=== PATIENT | female | born 1930 | race Caucasian/White ===

== ENCOUNTER → 2016-10-26 | Outpatient (REF) | payer MEDICARE ==
[~2016-10-26] MED LIST: ADVA115A INH; CALC600T10 PO; CART120C PO; COLA100C PO; DULC5TAB PO; ELIQ2.5T PO; HYDR12CA PO; NORCOTAB PO; SIMV20TA2 PO; SPIR1CAP INH; VITA-130 PO; VITA10002 PO; VITA100066 PO; [UNRECOGNIZED DRUG - CODE] PO
== END ==
LOC: M LAB REF 16:34
PROVIDERS: ATTEND Internal Medicine Medical Oncology
DX: C18.9 Malignant neoplasm of colon, unspecified (principal)

== ENCOUNTER → 2017-01-26 | Outpatient (REF) | payer MEDICARE ==
[~2017-01-26] MED LIST changes: -COLA100C PO; +COLA100C3 PO
== END ==
LOC: M LAB REF 16:36
PROVIDERS: ATTEND Internal Medicine Medical Oncology
DX: C18.9 Malignant neoplasm of colon, unspecified (principal)

== ENCOUNTER → 2017-03-23 | Outpatient (CLI) | payer MEDICARE ==
[~2017-03-23] MED LIST changes: -CALC600T10 PO; +CALC600T31 PO; -COLA100C3 PO; +COLA100C5 PO; +FURO20TA2 PO; +K-TA10TA2 PO; +VENTAER IN; -VITA-130 PO; +VITA500T PO
--- NOTE | 2017-03-23 13:33 | REPMRS ---
Patient History The patient states she had a clinical breast exam in 02/14 Patient is postmenopausal, has history of colorectal cancer at age 85, and has history of skin cancer at age 49 and 86. Family history of breast cancer in sister at age 50 or over. Digital Woman Screen Mammo: March 23, 2017 - Exam #: [id number] Bilateral CC and MLO view(s) were taken. Technologist: Lindsey Reed, Technologist Prior study comparison: March 03, 2016, digital woman screen mammo performed at [facility] [employer] [facility]. March 04, 2015, digital woman screen mammo performed at [facility] [employer] [facility]. FINDINGS: There are scattered fibroglandular densities. There has been no change in the appearance of the mammogram from the prior studies. There is a mild amount of residual fibroglandular tissue which is fairly symmetric. There is no interval development of dominant mass, architectural distortion, or clustered microcalcification suggestive of malignancy. ASSESSMENT: BI-RADS/ACR category 1 mammogram. Negative. Recommendation Routine screening mammogram in 1 year (for women over age 40). This mammogram was interpreted with the aid of an FDA-approved computer-aided dectection system. Electronically Signed By: Tommy Rosales MD 03/23/17 [id number]
== END ==
LOC: M WHC 12:58
PROVIDERS: ATTEND Internal Medicine
DX: Z12.31 Encounter for screening mammogram for malignant neoplasm of breast (principal)

== ENCOUNTER → 2017-04-29 | Outpatient (REF) | payer MEDICARE | LOC: M LAB REF 12:38 | PROVIDERS: ATTEND Internal Medicine Medical Oncology | DX: C18.9 Malignant neoplasm of colon, unspecified (principal) ==

== ENCOUNTER 2017-05-02 20:19 | Emergency (ER) | payer MEDICARE ==
[~2017-05-02] VITALS: Ht 162.6 cm; Wt 77.3 kg
[~2017-05-02 20:19] MED LIST changes: -FURO20TA2 PO; -K-TA10TA2 PO; -VENTAER IN
[2017-05-02] MEDS ORDERED: K-TA10TA2 PO (20:44)
[2017-05-02] MEDS ORDERED: FURO20TA2 PO (20:46)
[2017-05-03 00:48] VITALS: BP 140/62
[2017-05-24] MEDS ORDERED: ELIQ2.5T PO (14:13)
[2017-05-24] MEDS ORDERED: VENTAER IN (14:16)
== END 2017-05-03 00:49 | disposition home or self-care (01) ==
LOC: M ED 20:19
DX: S81.812A Laceration without foreign body, left lower leg, initial encounter (principal); Z87.891 Personal history of nicotine dependence; Z79.01 Long term (current) use of anticoagulants; W22.09XA Striking against other stationary object, initial encounter; Y92.090 Kitchen in other non-institutional residence as the place of occurrence of the external cause; Y93.01 Activity, walking, marching and hiking; Y99.9 Unspecified external cause status

== ENCOUNTER → 2017-05-05 | Outpatient (REF) | payer MEDICARE ==
[~2017-05-05] MED LIST changes: +FURO20TA2 PO; +K-TA10TA2 PO; +VENTAER IN
== END ==
LOC: M LAB REF 12:12
PROVIDERS: ATTEND Nurse Practitioner Adult Health
DX: E83.52 Hypercalcemia (principal)

== ENCOUNTER → 2017-08-30 | Outpatient (REF) | payer MEDICARE ==
[2017-08-30 18:55] LABS: CARCINOEMBRYONIC ANTIGEN 1.4 NG/ML (<2.5)
== END ==
LOC: M LAB REF 17:42
DX: C18.9 Malignant neoplasm of colon, unspecified (principal)
CPT/HCPCS: 82378

== ENCOUNTER 2017-08-31 10:02 | Inpatient (IN) | payer MEDICARE ==
[2017-08-31 10:33] LABS: BASO # 0.1 10^3/uL (0.0-0.2); BASO % 0.4 % (0.0-1.0); EOS # 0.2 10^3/uL (0.0-0.50); EOS % 1.2 % (0.0-3.0); HEMATOCRIT 39.3 % (36.0-47.0); HEMOGLOBIN 12.3 g/dl (12.0-16.0); IMMATURE GRANULOCYTE # 0.1 10^3/uL (0-0); IMMATURE GRANULOCYTE % 0.6 % (0-0); LYMPH # 1.6 10^3/uL (1.5-4.5); LYMPH % 11.6 % (24.0-44.0); MEAN CORPUSCULAR HEMOGLOBIN 29.5 pg (27.0-33.0); MEAN CORPUSCULAR HGB CONC 31.3 g/dl (32.0-36.5); MEAN CORPUSCULAR VOLUME 94.2 fl (80.0-96.0); MONO # 1.1 10^3/uL (0.0-0.8); NEUTROPHILS # 10.9 10^3/uL (1.8-7.7); NEUTROPHILS % 78.2 % (36.0-66.0); PLATELET COUNT, AUTOMATED 248 10^3/uL (150-450); RED BLOOD COUNT 4.17 10^6/uL (4.00-5.40); RED CELL DISTRIBUTION WIDTH 13.5 % (11.5-14.5)
[2017-08-31 10:54] LABS: LACTIC ACID SEPSIS PROTOCOL 1.5 MMOL/L (0.4-2.0)
[2017-08-31 10:55] LABS: ALBUMIN 3.4 GM/DL (3.2-5.2); ALBUMIN/GLOBULIN RATIO 0.97 (1.00-1.93); ALKALINE PHOSPHATASE 55 U/L (45-117); ALT/SGPT 18 U/L (12-78); ANION GAP 5 MEQ/L (8-16); AST/SGOT 16 U/L (7-37); BILIRUBIN,DIRECT < 0.1 MG/DL (0.0-0.2); BILIRUBIN,TOTAL 0.3 MG/DL (0.2-1.0); BLOOD UREA NITROGEN 12 MG/DL (7-18); CALCIUM LEVEL 8.7 MG/DL (8.8-10.2); CARBON DIOXIDE LEVEL 32 MEQ/L (21-32); CHLORIDE LEVEL 108 MEQ/L (98-107); CREATININE FOR GFR 0.83 MG/DL (0.55-1.30); GLOMERULAR FILTRATION RATE > 60.0 (>32); GLUCOSE, FASTING 133 MG/DL (70-100); NT-PRO BNP 79 PG/ML (<450); POTASSIUM SERUM 3.3 MEQ/L (3.5-5.1); SODIUM LEVEL 145 MEQ/L (136-145); TOTAL PROTEIN 6.9 GM/DL (6.4-8.2)
[2017-08-31] MEDS ORDERED: ISOVUE-370 76% 100ML VIAL (Q9967) As Ordered (11:15)
[2017-08-31] MEDS ORDERED: ALBUTEROL SULFATE 2.5 MG/0.5 ML INH NEB SOLN INH ×2 (14:30→16:00)
[2017-08-31] MEDS ORDERED: ACETAMINOPHEN TAB 650MG DOSE (2X325MG) PO (14:30)
[2017-08-31] MEDS: LEVALBUTEROL 1.25 MG/0.5 ML CONCENTRATE NEB NEB (14:38)
[2017-08-31] MEDS: methylPREDNISolone INJ 125 MG/2 ML VIAL (J2930) IV ×2 (14:40→23:36)
[2017-08-31 15:59] LABS: MAGNESIUM LEVEL 2.3 MG/DL (1.8-2.4)
[2017-08-31] MEDS: POTASSIUM CHLORIDE 10 MEQ SR TABLET PO ×2 (17:59→21:29)
[2017-08-31 18:37] LABS: ANION GAP 4 MEQ/L (8-16); BLOOD UREA NITROGEN 10 MG/DL (7-18); CALCIUM LEVEL 9.2 MG/DL (8.8-10.2); CARBON DIOXIDE LEVEL 34 MEQ/L (21-32); CHLORIDE LEVEL 108 MEQ/L (98-107); CPK CREATINE PHOSPHOKINASE 113 U/L (26-192); CREATININE FOR GFR 0.83 MG/DL (0.55-1.30); GLOMERULAR FILTRATION RATE > 60.0 (>32); GLUCOSE, FASTING 159 MG/DL (70-100); MB/CK RELATIVE INDEX 1.76 (< OR =4); POTASSIUM SERUM 4.6 MEQ/L (3.5-5.1); SODIUM LEVEL 146 MEQ/L (136-145); TROPONIN I < 0.02 NG/ML (< 0.10)
[2017-08-31] MEDS: LEVALBUTEROL 1.25 MG/0.5 ML CONCENTRATE NEB INH (19:28)
[2017-08-31] MEDS: APIXABAN 2.5 MG TAB (ELIQUIS) PO (21:28)
[2017-08-31] MEDS: FUROSEMIDE 20 MG TAB PO (21:29)
[2017-08-31] MEDS: SIMVASTATIN 20 MG TAB PO (21:31)
[2017-08-31] MEDS: ADVAIR HFA 230/21MCG INHALER INH (21:39)
[2017-09-01 02:29] LABS: CK-MB VALUE MASS 1.3 NG/ML (0.0-3.6); CPK CREATINE PHOSPHOKINASE 82 U/L (26-192); MB/CK RELATIVE INDEX 1.58 (< OR =4); TROPONIN I < 0.02 NG/ML (< 0.10)
[2017-09-01 05:30] LABS: BASO % 0.1 % (0.0-1.0); HEMATOCRIT 35.6 % (36.0-47.0); HEMOGLOBIN 11.4 g/dl (12.0-16.0); IMMATURE GRANULOCYTE # 0.1 10^3/uL (0-0); IMMATURE GRANULOCYTE % 1.1 % (0-0); LYMPH # 1.2 10^3/uL (1.5-4.5); LYMPH % 9.5 % (24.0-44.0); MEAN CORPUSCULAR HEMOGLOBIN 29.9 pg (27.0-33.0); MEAN CORPUSCULAR VOLUME 93.4 fl (80.0-96.0); MONO # 0.1 10^3/uL (0.0-0.8); MONO % 1.1 % (0.0-5.0); NEUTROPHILS # 10.8 10^3/uL (1.8-7.7); NEUTROPHILS % 88.2 % (36.0-66.0); PLATELET COUNT, AUTOMATED 236 10^3/uL (150-450); RED BLOOD COUNT 3.81 10^6/uL (4.00-5.40); RED CELL DISTRIBUTION WIDTH 13.5 % (11.5-14.5); WHITE BLOOD COUNT 12.3 10^3/uL (4.0-10.0)
[2017-09-01 05:49] LABS: ALBUMIN 3.1 GM/DL (3.2-5.2); ALBUMIN/GLOBULIN RATIO 0.94 (1.00-1.93); ALKALINE PHOSPHATASE 47 U/L (45-117); ALT/SGPT 17 U/L (12-78); ANION GAP 5 MEQ/L (8-16); AST/SGOT 15 U/L (7-37); BILIRUBIN,TOTAL 0.3 MG/DL (0.2-1.0); BLOOD UREA NITROGEN 12 MG/DL (7-18); CALCIUM LEVEL 8.4 MG/DL (8.8-10.2); CARBON DIOXIDE LEVEL 31 MEQ/L (21-32); CHLORIDE LEVEL 108 MEQ/L (98-107); CREATININE FOR GFR 0.73 MG/DL (0.55-1.30); GLOMERULAR FILTRATION RATE > 60.0 (>32); GLUCOSE, FASTING 180 MG/DL (70-100); MAGNESIUM LEVEL 2.1 MG/DL (1.8-2.4); POTASSIUM SERUM 4.1 MEQ/L (3.5-5.1); SODIUM LEVEL 144 MEQ/L (136-145); TOTAL PROTEIN 6.4 GM/DL (6.4-8.2)
[2017-09-01] MEDS: methylPREDNISolone INJ 125 MG/2 ML VIAL (J2930) IV (06:25)
[2017-09-01] MEDS: APIXABAN 2.5 MG TAB (ELIQUIS) PO ×2 (08:21→21:17)
[2017-09-01] MEDS: POTASSIUM CHLORIDE 10 MEQ SR TABLET PO ×2 (08:21→21:19)
[2017-09-01] MEDS: VITAMIN D 1,000 INTERNATIONAL UNITS TABLET PO (08:21)
[2017-09-01] MEDS: FUROSEMIDE 20 MG TAB PO ×2 (08:22→21:18)
[2017-09-01] MEDS: ADVAIR HFA 230/21MCG INHALER INH ×2 (08:24→20:46)
[2017-09-01] MEDS: TIOTROPIUM INHALER/CAPSULE (SPIRIVA) INH (08:24)
[2017-09-01] MEDS: LEVALBUTEROL 1.25 MG/0.5 ML CONCENTRATE NEB INH ×5 (08:25→23:40)
[2017-09-01 10:58] LABS: CK-MB VALUE MASS 1.7 NG/ML (0.0-3.6); CPK CREATINE PHOSPHOKINASE 79 U/L (26-192); MB/CK RELATIVE INDEX 2.15 (< OR =4); TROPONIN I < 0.02 NG/ML (< 0.10)
[2017-09-01] MEDS: methylPREDNISolone INJ 40 MG/1 ML VIAL (J2920) IV ×2 (14:12→23:18)
[2017-09-01] MEDS: SIMVASTATIN 20 MG TAB PO (21:19)
[2017-09-02 05:46] LABS: BASO % 0.1 % (0.0-1.0); HEMATOCRIT 34.4 % (36.0-47.0); HEMOGLOBIN 10.9 g/dl (12.0-16.0); IMMATURE GRANULOCYTE # 0.5 10^3/uL (0-0); IMMATURE GRANULOCYTE % 2.1 % (0-0); LYMPH # 0.9 10^3/uL (1.5-4.5); LYMPH % 3.8 % (24.0-44.0); MEAN CORPUSCULAR HEMOGLOBIN 29.5 pg (27.0-33.0); MEAN CORPUSCULAR HGB CONC 31.7 g/dl (32.0-36.5); MEAN CORPUSCULAR VOLUME 93.2 fl (80.0-96.0); MONO # 0.7 10^3/uL (0.0-0.8); MONO % 3.1 % (0.0-5.0); NEUTROPHILS % 90.9 % (36.0-66.0); PLATELET COUNT, AUTOMATED 266 10^3/uL (150-450); RED BLOOD COUNT 3.69 10^6/uL (4.00-5.40); RED CELL DISTRIBUTION WIDTH 13.9 % (11.5-14.5); WHITE BLOOD COUNT 24.2 10^3/uL (4.0-10.0)
[2017-09-02] MEDS: methylPREDNISolone INJ 40 MG/1 ML VIAL (J2920) IV ×2 (06:08→14:49)
[2017-09-02 06:19] LABS: ALBUMIN 3.1 GM/DL (3.2-5.2); ALKALINE PHOSPHATASE 47 U/L (45-117); ALT/SGPT 18 U/L (12-78); ANION GAP 4 MEQ/L (8-16); AST/SGOT 16 U/L (7-37); BILIRUBIN,TOTAL 0.2 MG/DL (0.2-1.0); BLOOD UREA NITROGEN 22 MG/DL (7-18); CARBON DIOXIDE LEVEL 30 MEQ/L (21-32); CHLORIDE LEVEL 107 MEQ/L (98-107); CREATININE FOR GFR 0.88 MG/DL (0.55-1.30); FREE THYROXINE INDEX 2.8 % (1.3-4.8); GLOMERULAR FILTRATION RATE > 60.0 (>32); GLUCOSE, FASTING 187 MG/DL (70-100); POTASSIUM SERUM 5.1 MEQ/L (3.5-5.1); SODIUM LEVEL 141 MEQ/L (136-145); T UPTAKE 36 % (30-39); THYROID STIMULATING HORMONE 0.185 uIU/ML (0.358-3.740); THYROXINE (T4) 7.8 UG/DL (4.5-12.0); TOTAL PROTEIN 6.2 GM/DL (6.4-8.2)
[2017-09-02] MEDS: LEVALBUTEROL 1.25 MG/0.5 ML CONCENTRATE NEB INH ×4 (08:00→20:00)
[2017-09-02] MEDS: ADVAIR HFA 230/21MCG INHALER INH ×2 (08:28→20:43)
[2017-09-02] MEDS: TIOTROPIUM INHALER/CAPSULE (SPIRIVA) INH (08:28)
[2017-09-02] MEDS: VITAMIN D 1,000 INTERNATIONAL UNITS TABLET PO (08:54)
[2017-09-02] MEDS: ENOXAPARIN 80 MG/0.8 ML SYRINGE (J1650) SC ×2 (08:54→20:53)
[2017-09-02] MEDS ORDERED: SLF 3 ML SYR IV (11:00)
[2017-09-02] MEDS: SLF 3 ML SYR IV ×2 (14:49→20:53)
[2017-09-02] MEDS: SIMVASTATIN 20 MG TAB PO (20:53)
[2017-09-03] MEDS: methylPREDNISolone INJ 40 MG/1 ML VIAL (J2920) IV ×3 (00:02→20:04)
[2017-09-03] MEDS: SLF 3 ML SYR IV ×3 (00:04→21:12)
[2017-09-03 04:36] LABS: BASO % 0.1 % (0.0-1.0); HEMATOCRIT 35.6 % (36.0-47.0); HEMOGLOBIN 11.1 g/dl (12.0-16.0); IMMATURE GRANULOCYTE # 0.5 10^3/uL (0-0); IMMATURE GRANULOCYTE % 2.3 % (0-0); LYMPH # 0.7 10^3/uL (1.5-4.5); LYMPH % 3.4 % (24.0-44.0); MEAN CORPUSCULAR HEMOGLOBIN 29.6 pg (27.0-33.0); MEAN CORPUSCULAR HGB CONC 31.2 g/dl (32.0-36.5); MEAN CORPUSCULAR VOLUME 94.9 fl (80.0-96.0); MONO # 0.7 10^3/uL (0.0-0.8); MONO % 3.3 % (0.0-5.0); NEUTROPHILS # 19.2 10^3/uL (1.8-7.7); NEUTROPHILS % 90.9 % (36.0-66.0); PLATELET COUNT, AUTOMATED 258 10^3/uL (150-450); RED BLOOD COUNT 3.75 10^6/uL (4.00-5.40); RED CELL DISTRIBUTION WIDTH 13.9 % (11.5-14.5); WHITE BLOOD COUNT 21.2 10^3/uL (4.0-10.0)
[2017-09-03 04:55] LABS: ALBUMIN 3.1 GM/DL (3.2-5.2); ALBUMIN/GLOBULIN RATIO 0.97 (1.00-1.93); ALKALINE PHOSPHATASE 49 U/L (45-117); ALT/SGPT 24 U/L (12-78); ANION GAP 6 MEQ/L (8-16); AST/SGOT 15 U/L (7-37); BILIRUBIN,TOTAL 0.2 MG/DL (0.2-1.0); BLOOD UREA NITROGEN 22 MG/DL (7-18); CALCIUM LEVEL 9.1 MG/DL (8.8-10.2); CARBON DIOXIDE LEVEL 31 MEQ/L (21-32); CHLORIDE LEVEL 105 MEQ/L (98-107); CREATININE FOR GFR 0.69 MG/DL (0.55-1.30); GLOMERULAR FILTRATION RATE > 60.0 (>32); GLUCOSE, FASTING 182 MG/DL (70-100); POTASSIUM SERUM 4.4 MEQ/L (3.5-5.1); SODIUM LEVEL 142 MEQ/L (136-145); TOTAL PROTEIN 6.3 GM/DL (6.4-8.2)
[2017-09-03] MEDS: TIOTROPIUM INHALER/CAPSULE (SPIRIVA) INH (07:52)
[2017-09-03] MEDS: ADVAIR HFA 230/21MCG INHALER INH ×2 (07:53→23:40)
[2017-09-03] MEDS: LEVALBUTEROL 1.25 MG/0.5 ML CONCENTRATE NEB INH ×4 (07:53→20:00)
[2017-09-03] MEDS: ENOXAPARIN 80 MG/0.8 ML SYRINGE (J1650) SC ×2 (08:08→21:12)
[2017-09-03] MEDS: VITAMIN D 1,000 INTERNATIONAL UNITS TABLET PO (08:08)
[2017-09-03] MEDS: SIMVASTATIN 20 MG TAB PO (21:11)
[2017-09-03] MEDS: FUROSEMIDE 20 MG TAB PO (21:12)
[2017-09-04] MEDS: LEVALBUTEROL 1.25 MG/0.5 ML CONCENTRATE NEB INH ×5 (02:06→20:00)
[2017-09-04] MEDS: methylPREDNISolone INJ 40 MG/1 ML VIAL (J2920) IV (06:42)
[2017-09-04] MEDS: SLF 3 ML SYR IV ×3 (06:42→20:27)
[2017-09-04 07:05] LABS: BASO # 0.1 10^3/uL (0.0-0.2); BASO % 0.5 % (0.0-1.0); HEMATOCRIT 40.6 % (36.0-47.0); IMMATURE GRANULOCYTE % 4.7 % (0-0); LYMPH # 1.1 10^3/uL (1.5-4.5); LYMPH % 5.4 % (24.0-44.0); MEAN CORPUSCULAR HEMOGLOBIN 29.7 pg (27.0-33.0); MEAN CORPUSCULAR VOLUME 92.9 fl (80.0-96.0); MONO # 0.8 10^3/uL (0.0-0.8); MONO % 3.8 % (0.0-5.0); NEUTROPHILS # 17.4 10^3/uL (1.8-7.7); NEUTROPHILS % 85.6 % (36.0-66.0); PLATELET COUNT, AUTOMATED 290 10^3/uL (150-450); RED BLOOD COUNT 4.37 10^6/uL (4.00-5.40); RED CELL DISTRIBUTION WIDTH 13.8 % (11.5-14.5); WHITE BLOOD COUNT 20.3 10^3/uL (4.0-10.0)
[2017-09-04 07:30] LABS: ALBUMIN 3.5 GM/DL (3.2-5.2); ALBUMIN/GLOBULIN RATIO 1.03 (1.00-1.93); ALKALINE PHOSPHATASE 48 U/L (45-117); ALT/SGPT 25 U/L (12-78); ANION GAP 6 MEQ/L (8-16); AST/SGOT 11 U/L (7-37); BILIRUBIN,TOTAL 0.3 MG/DL (0.2-1.0); BLOOD UREA NITROGEN 19 MG/DL (7-18); CALCIUM LEVEL 8.9 MG/DL (8.8-10.2); CARBON DIOXIDE LEVEL 31 MEQ/L (21-32); CHLORIDE LEVEL 107 MEQ/L (98-107); CREATININE FOR GFR 0.85 MG/DL (0.55-1.30); GLOMERULAR FILTRATION RATE > 60.0 (>32); GLUCOSE, FASTING 174 MG/DL (70-100); POTASSIUM SERUM 3.8 MEQ/L (3.5-5.1); SODIUM LEVEL 144 MEQ/L (136-145); TOTAL PROTEIN 6.9 GM/DL (6.4-8.2)
[2017-09-04] MEDS: ADVAIR HFA 230/21MCG INHALER INH ×2 (07:48→20:10)
[2017-09-04] MEDS: TIOTROPIUM INHALER/CAPSULE (SPIRIVA) INH (07:48)
[2017-09-04] MEDS: ENOXAPARIN 80 MG/0.8 ML SYRINGE (J1650) SC ×2 (08:36→20:26)
[2017-09-04] MEDS: FUROSEMIDE 20 MG TAB PO ×2 (08:36→20:26)
[2017-09-04] MEDS: VITAMIN D 1,000 INTERNATIONAL UNITS TABLET PO (08:36)
[2017-09-04] MEDS: predniSONE 20 MG TAB PO (08:36)
[2017-09-04] MEDS: guaiFENesin ER 600 MG TAB PO ×2 (09:00→20:26)
[2017-09-04] MEDS: SIMVASTATIN 20 MG TAB PO (20:26)
[2017-09-05 05:50] LABS: HEMATOCRIT 35.7 % (36.0-47.0); HEMOGLOBIN 11.5 g/dl (12.0-16.0); MEAN CORPUSCULAR HEMOGLOBIN 29.9 pg (27.0-33.0); MEAN CORPUSCULAR HGB CONC 32.2 g/dl (32.0-36.5); PLATELET COUNT, AUTOMATED 256 10^3/uL (150-450); RED BLOOD COUNT 3.84 10^6/uL (4.00-5.40); RED CELL DISTRIBUTION WIDTH 13.8 % (11.5-14.5); WHITE BLOOD COUNT 17.3 10^3/uL (4.0-10.0)
[2017-09-05 05:55] LABS: ADD MANUAL DIFFER YES; DIFF SLIDE NUMBER 26; POS COUNT POS FLAG; POSITIVE MORPH POS FLAG
[2017-09-05 06:15] LABS: ALBUMIN 2.8 GM/DL (3.2-5.2); ALBUMIN/GLOBULIN RATIO 0.97 (1.00-1.93); ALKALINE PHOSPHATASE 39 U/L (45-117); ALT/SGPT 21 U/L (12-78); ANION GAP 6 MEQ/L (8-16); AST/SGOT 8 U/L (7-37); BILIRUBIN,TOTAL 0.3 MG/DL (0.2-1.0); BLOOD UREA NITROGEN 19 MG/DL (7-18); CARBON DIOXIDE LEVEL 32 MEQ/L (21-32); CHLORIDE LEVEL 106 MEQ/L (98-107); CREATININE FOR GFR 0.71 MG/DL (0.55-1.30); GLOMERULAR FILTRATION RATE > 60.0 (>32); GLUCOSE, FASTING 160 MG/DL (70-100); POTASSIUM SERUM 3.5 MEQ/L (3.5-5.1); SODIUM LEVEL 144 MEQ/L (136-145); TOTAL PROTEIN 5.7 GM/DL (6.4-8.2)
[2017-09-05 06:28] LABS: ATYPICAL LYMPH 3 % (0-5); LYMPHOCYTES 2 % (16-52); METAMYELOCYTES 1 % (0-0); MONOCYTES 5 % (0-8); NEUTROPHILS 89 % (35-75)
[2017-09-05 06:29] LABS: PLATELET ESTIMATE NORMAL (NORMAL)
[2017-09-05] MEDS: SLF 3 ML SYR IV ×3 (06:36→21:19)
[2017-09-05] MEDS: LEVALBUTEROL 1.25 MG/0.5 ML CONCENTRATE NEB INH ×4 (08:00→21:51)
[2017-09-05] MEDS: TIOTROPIUM INHALER/CAPSULE (SPIRIVA) INH (08:19)
[2017-09-05] MEDS: ADVAIR HFA 230/21MCG INHALER INH ×2 (08:19→21:50)
[2017-09-05] MEDS: VITAMIN D 1,000 INTERNATIONAL UNITS TABLET PO (09:02)
[2017-09-05] MEDS: predniSONE 20 MG TAB PO (09:02)
[2017-09-05] MEDS: FUROSEMIDE 20 MG TAB PO ×2 (09:02→21:18)
[2017-09-05] MEDS: guaiFENesin ER 600 MG TAB PO ×2 (09:02→21:18)
[2017-09-05] MEDS: ENOXAPARIN 80 MG/0.8 ML SYRINGE (J1650) SC (09:03)
[2017-09-05] MEDS: SIMVASTATIN 20 MG TAB PO (21:18)
[2017-09-05] MEDS: APIXABAN 2.5 MG TAB (ELIQUIS) PO (21:18)
[2017-09-06] MEDS: SLF 3 ML SYR IV (05:19)
[2017-09-06 05:48] LABS: HEMATOCRIT 38.6 % (36.0-47.0); HEMOGLOBIN 12.4 g/dl (12.0-16.0); MEAN CORPUSCULAR HEMOGLOBIN 29.5 pg (27.0-33.0); MEAN CORPUSCULAR HGB CONC 32.1 g/dl (32.0-36.5); MEAN CORPUSCULAR VOLUME 91.7 fl (80.0-96.0); PLATELET COUNT, AUTOMATED 267 10^3/uL (150-450); RED BLOOD COUNT 4.21 10^6/uL (4.00-5.40); RED CELL DISTRIBUTION WIDTH 13.7 % (11.5-14.5); WHITE BLOOD COUNT 19.5 10^3/uL (4.0-10.0)
[2017-09-06 05:53] LABS: ADD MANUAL DIFFER YES; DIFF SLIDE NUMBER 14; POS COUNT POS FLAG; POSITIVE MORPH POS FLAG
[2017-09-06 06:11] LABS: ALBUMIN/GLOBULIN RATIO 1.07 (1.00-1.93); ALKALINE PHOSPHATASE 44 U/L (45-117); ALT/SGPT 20 U/L (12-78); ANION GAP 7 MEQ/L (8-16); AST/SGOT 9 U/L (7-37); BILIRUBIN,TOTAL 0.4 MG/DL (0.2-1.0); BLOOD UREA NITROGEN 19 MG/DL (7-18); CALCIUM LEVEL 8.4 MG/DL (8.8-10.2); CARBON DIOXIDE LEVEL 35 MEQ/L (21-32); CHLORIDE LEVEL 101 MEQ/L (98-107); CREATININE FOR GFR 0.71 MG/DL (0.55-1.30); GLOMERULAR FILTRATION RATE > 60.0 (>32); GLUCOSE, FASTING 121 MG/DL (70-100); POTASSIUM SERUM 3.1 MEQ/L (3.5-5.1); SODIUM LEVEL 143 MEQ/L (136-145); TOTAL PROTEIN 5.8 GM/DL (6.4-8.2)
[2017-09-06 07:28] LABS: ATYPICAL LYMPH 1 % (0-5); BANDS 1 % (< 11); LYMPHOCYTES 10 % (16-52); METAMYELOCYTES 3 % (0-0); MONOCYTES 6 % (0-8); NEUTROPHILS 79 % (35-75)
[2017-09-06 07:29] LABS: ANISOCYTOSIS 1+; PLATELET ESTIMATE NORMAL (NORMAL)
[2017-09-06] MEDS: LEVALBUTEROL 1.25 MG/0.5 ML CONCENTRATE NEB INH ×2 (08:00→11:30)
[2017-09-06] MEDS: POTASSIUM CHLORIDE 10 MEQ SR TABLET PO (08:13)
[2017-09-06] MEDS: guaiFENesin ER 600 MG TAB PO (08:13)
[2017-09-06] MEDS: VITAMIN D 1,000 INTERNATIONAL UNITS TABLET PO (08:13)
[2017-09-06] MEDS: FUROSEMIDE 20 MG TAB PO (08:14)
[2017-09-06] MEDS: APIXABAN 2.5 MG TAB (ELIQUIS) PO (08:14)
[2017-09-06] MEDS: predniSONE 20 MG TAB PO (08:14)
[2017-09-06] MEDS: TIOTROPIUM INHALER/CAPSULE (SPIRIVA) INH (08:31)
[2017-09-06] MEDS: ADVAIR HFA 230/21MCG INHALER INH (08:32)
[2017-09-06] MEDS ORDERED: predniSONE 20 MG TAB PO ×2 (09:00)
[2017-09-08 14:11] LABS: DOPAMINE 147 ug/24 hr (0-510); DOPAMINE TOTAL URINE 92 ug/L (Undefined); EPINEPHRINE < 2 ug/24 hr (0-20); EPINEPHRINE TOTAL URINE <1 ug/L (Undefined); METANEPHRINE TOTAL URINE 58 ug/L (Undefined); METANEPHRINE URINE 93 ug/24 hr (45-290); NOREPINEPHRINE 30 ug/24 hr (0-135); NOREPINEPHRINE TOTAL URINE 19 ug/L (Undefined); NORMETANEPHRINE TOTAL URINE 155 ug/L (Undefined); NORMETANEPHRINE URINE 248 ug/24 hr (82-500)
== END 2017-09-06 12:14 | disposition home health service (06) | DRG 191 ==
LOC: M MS4PR 09-03 15:50 → M MSPAV 09-04 17:18 → M ED 10:02 → M ED INP 14:00 → M PCU 17:27
DX: J44.1 Chronic obstructive pulmonary disease with (acute) exacerbation (principal); J96.11 Chronic respiratory failure with hypoxia; I50.9 Heart failure, unspecified; Z66 Do not resuscitate; D44.12 Neoplasm of uncertain behavior of left adrenal gland; I48.2 Chronic atrial fibrillation; E87.6 Hypokalemia; I11.0 Hypertensive heart disease with heart failure; E78.5 Hyperlipidemia, unspecified; Z85.038 Personal history of other malignant neoplasm of large intestine; Z90.49 Acquired absence of other specified parts of digestive tract; Z90.710 Acquired absence of both cervix and uterus; Z87.891 Personal history of nicotine dependence; Z99.81 Dependence on supplemental oxygen; Z79.01 Long term (current) use of anticoagulants; Z79.899 Other long term (current) drug therapy

== ENCOUNTER → 2017-09-08 | Outpatient (REF) | payer MEDICARE ==
[2017-09-08 13:35] LABS: INR 1.02; PROTHROMBIN TIME 13.5 SECONDS (12.4-14.5)
== END ==
LOC: M LAB REF 13:09
DX: C18.9 Malignant neoplasm of colon, unspecified (principal); I48.91 Unspecified atrial fibrillation
CPT/HCPCS: 85610

== ENCOUNTER → 2017-09-26 | Outpatient (CLI) | payer MEDICARE ==
[~2017-09-26] MED LIST changes: -ADVA115A INH; -CALC600T31 PO; -CART120C PO; -COLA100C5 PO; -DULC5TAB PO; -ELIQ2.5T PO; -FURO20TA2 PO; -HYDR12CA PO; -K-TA10TA2 PO; +LIDOCAINE 1% MDV 20ML VIAL As Ordered; -NORCOTAB PO; -SIMV20TA2 PO; -SPIR1CAP INH; -VENTAER IN; -VITA10002 PO; -VITA100066 PO; -VITA500T PO; -[UNRECOGNIZED DRUG - CODE] PO
== END ==
LOC: M RADPRO 09:55
DX: E27.8 Other specified disorders of adrenal gland (principal); I10 Essential (primary) hypertension; E78.00 Pure hypercholesterolemia, unspecified; E87.6 Hypokalemia; K21.9 Gastro-esophageal reflux disease without esophagitis; J44.9 Chronic obstructive pulmonary disease, unspecified; M54.9 Dorsalgia, unspecified; Z79.899 Other long term (current) drug therapy; Z87.891 Personal history of nicotine dependence
CPT/HCPCS: 49180

== ENCOUNTER → 2017-12-15 | Outpatient (CLI) | payer MEDICARE ==
[2017-12-15 10:45] LABS: ALBUMIN 3.5 GM/DL (3.2-5.2); ALBUMIN/GLOBULIN RATIO 1.21 (1.00-1.93); ALKALINE PHOSPHATASE 61 U/L (45-117); ALT/SGPT 16 U/L (12-78); ANION GAP 3 MEQ/L (8-16); AST/SGOT 14 U/L (7-37); BILIRUBIN,TOTAL 0.4 MG/DL (0.2-1.0); BLOOD UREA NITROGEN 13 MG/DL (7-18); CALCIUM LEVEL 8.9 MG/DL (8.8-10.2); CARBON DIOXIDE LEVEL 33 MEQ/L (21-32); CHLORIDE LEVEL 107 MEQ/L (98-107); CREATININE FOR GFR 0.82 MG/DL (0.55-1.30); GLOMERULAR FILTRATION RATE > 60.0 (>32); GLUCOSE, FASTING 119 MG/DL (70-100); POTASSIUM SERUM 3.5 MEQ/L (3.5-5.1); SODIUM LEVEL 143 MEQ/L (136-145); TOTAL PROTEIN 6.4 GM/DL (6.4-8.2)
[2017-12-21 00:07] LABS: DOPAMINE PLASMA <30 pg/mL (0-48); EPINEPHRINE PLASMA <15 pg/mL (0-62); NOREPINEPHRINE PLASMA 747 pg/mL (0-874)
== END ==
LOC: M LAB 09:28
DX: E27.9 Disorder of adrenal gland, unspecified (principal)
CPT/HCPCS: 80053

== ENCOUNTER → 2018-06-15 | Outpatient (REF) | payer MEDICARE | LOC: M SFHCPLAZ 16:54 | DX: C44.629 Squamous cell carcinoma of skin of left upper limb, including shoulder (principal); L57.0 Actinic keratosis | CPT/HCPCS: 88305 ==

== ENCOUNTER → 2018-06-16 | Outpatient (CLI) | payer MEDICARE | LOC: M WHC 14:14 | DX: Z12.31 Encounter for screening mammogram for malignant neoplasm of breast (principal); Z80.3 Family history of malignant neoplasm of breast; Z85.038 Personal history of other malignant neoplasm of large intestine | CPT/HCPCS: 77067 ==

== ENCOUNTER → 2018-07-04 | Outpatient (REF) | payer MEDICARE ==
[~2018-07-04] MED LIST changes: +ADVA115A INH; +ADVA230A INH; +CALC600T31 PO; +CART120C PO; +CART180C3 PO; +COLA100C5 PO; +DULC5TAB PO; +ELIQ2.5T PO; +FURO20TA2 PO; +HYDR12CA PO; +K-TA10TA2 PO; +LASI20TA3 PO; -LIDOCAINE 1% MDV 20ML VIAL As Ordered; +NORCOTAB PO; +POTA20TA6 PO; +PRED10TA2 PO; +SIMV20TA2 PO; +SIMV40TA2 PO; +SPIR1CAP INH; +VENTAER INH; +VITA10002 PO; +VITA100066 PO; +VITA2000 PO; +VITA500T PO; +[UNRECOGNIZED DRUG - CODE] PO
== END ==
LOC: M SFHCPLAZ 17:30
PROVIDERS: ATTEND Dermatology
DX: C44.42 Squamous cell carcinoma of skin of scalp and neck (principal); L57.0 Actinic keratosis

== ENCOUNTER → 2018-07-24 | Outpatient (CLI) | payer MEDICARE ==
[2018-07-24 11:58] LABS: ALBUMIN 3.8 GM/DL (3.2-5.2); BILIRUBIN,TOTAL 0.5 MG/DL (0.2-1.0); CALCIUM LEVEL 8.9 MG/DL (8.8-10.2); CREATININE FOR GFR 0.94 MG/DL (0.55-1.30); GLOMERULAR FILTRATION RATE 59.8 (>32); POTASSIUM SERUM 3.6 MEQ/L (3.5-5.1)
== END ==
LOC: M LAB 11:12
PROVIDERS: ATTEND Urology
DX: E27.9 Disorder of adrenal gland, unspecified (principal)

== ENCOUNTER 2018-09-05 09:02 | Day surgery (SDC) | payer MEDICARE ==
[~2018-09-05] VITALS: Ht 162.6 cm; Wt 75.7 kg
[~2018-09-05 09:02] MED LIST changes: +HAIR1TAB5 PO; +MIRA3350 PO; +MUCI600T31 PO; +NS 1,000 ML IV ONE; +SIMV10TA2 PO; +VITA100072 PO
[2018-09-05] MEDS ORDERED: PROPOFOL 200 MG/20 ML VIAL As Ordered ONE (11:33)
[2018-09-05] MEDS ORDERED: LIDOCAINE 2% INJ 100 MG/5 ML SDV (FOR ANES.) As Ordered ONE (11:33)
--- NOTE | 2018-09-05 11:50 | ROOR ---
Patient Name: Marnie Gamboa Procedure Date: 09/05/2018 11:20 AM Date of : 1930 Age: 88 Room: [facility] Gender: Female Note Status: Finalized Procedure: Colonoscopy Indications: High risk colon cancer surveillance: Personal history of colonic polyps, High risk colon cancer surveillance: Personal history of colon cancer Providers: Regan TATE MD Referring MD: SHANNA SHAIKH JR, MD Requesting Provider: Medicines: Monitored Anesthesia Care Complications: No immediate complications. Procedure: Pre-Anesthesia Assessment: - The heart rate, respiratory rate, oxygen saturations, blood pressure, adequacy of pulmonary ventilation, and response to care were monitored throughout the procedure. The Colonoscope was introduced through the anus and advanced to the ileocolonic anastomosis. The colonoscopy was performed without difficulty. The patient tolerated the procedure well. The quality of the bowel preparation was adequate. Findings: The perianal and digital rectal examinations were normal. Three sessile polyps were found in the mid transverse colon and distal transverse colon. The polyps were 4 to 5 mm in size. These polyps were removed with a cold snare. Resection and retrieval were complete. To prevent bleeding after the polypectomy, two hemostatic clips were successfully placed. There was no bleeding at the end of the procedure. A 5 mm polyp was found in the sigmoid colon. The polyp was sessile. The polyp was removed with a cold snare. Resection and retrieval were complete. Multiple small and large-mouthed diverticula were found in the sigmoid colon and descending colon. Internal hemorrhoids were found during retroflexion. The hemorrhoids were medium-sized. The exam was otherwise without abnormality on direct and retroflexion views. There was evidence of a prior functional end-to-end ileo-colonic anastomosis in the mid transverse colon. This was patent and was characterized by healthy appearing mucosa. Impression: - Patent functional end-to-end ileo-colonic anastomosis, characterized by healthy appearing mucosa. - Three 4 to 5 mm polyps in the mid transverse colon and in the distal transverse colon, removed with a cold snare. Resected and retrieved. Clips were placed. - One 5 mm polyp in the sigmoid colon, removed with a cold snare. Resected and retrieved. - Moderate diverticulosis in the sigmoid colon and in the descending colon. - Internal hemorrhoids. - The examination was otherwise normal on direct and retroflexion views. Recommendation: - Telephone endoscopist for pathology results in 2 weeks. - Repeat colonoscopy in 3 - 5 years for surveillance of multiple polyps. - (depending on health status) - Resume Eliquis (apixaban) at prior dose tomorrow. Regan Tate MD Regan TATE MD 09/05/2018 11:49:55 AM This report has been signed electronically. Number of Addenda: 0 Note Initiated On: 09/05/2018 11:20 AM Estimated Blood Loss: Estimated blood loss: none.
[2018-09-05 12:06] VITALS: BP 127/60
== END 2018-09-05 12:25 | disposition home or self-care (01) ==
LOC: M OPP 09:02
PROVIDERS: ATTEND Internal Medicine Gastroenterology
DX: Z09 Encounter for follow-up examination after completed treatment for conditions other than malignant neoplasm (principal); Z86.010 Personal history of colon polyps; Z85.038 Personal history of other malignant neoplasm of large intestine; Z63.5 Disruption of family by separation and divorce; K64.8 Other hemorrhoids; J44.9 Chronic obstructive pulmonary disease, unspecified; I48.91 Unspecified atrial fibrillation; Z79.899 Other long term (current) drug therapy; Z87.891 Personal history of nicotine dependence

== ENCOUNTER → 2018-10-16 | Outpatient (REF) | payer MEDICARE ==
[~2018-10-16] MED LIST changes: -NS 1,000 ML IV ONE
[2018-10-16 19:23] LABS: ALBUMIN 3.7 GM/DL (3.2-5.2); ALT/SGPT 17 U/L (12-78); BILIRUBIN,TOTAL 0.5 MG/DL (0.2-1.0); BLOOD UREA NITROGEN 15 MG/DL (7-18); CALCIUM LEVEL 9.3 MG/DL (8.8-10.2); CARBON DIOXIDE LEVEL 33 MEQ/L (21-32); CHLORIDE LEVEL 104 MEQ/L (98-107); CREATININE FOR GFR 0.81 MG/DL (0.55-1.30); GLOMERULAR FILTRATION RATE > 60.0 (>32); GLUCOSE, FASTING 110 MG/DL (70-100); POTASSIUM SERUM 4.2 MEQ/L (3.5-5.1); SODIUM LEVEL 142 MEQ/L (136-145); TOTAL PROTEIN 6.8 GM/DL (6.4-8.2)
== END ==
LOC: M LABDRAW1 18:46
PROVIDERS: ATTEND Urology
DX: E27.9 Disorder of adrenal gland, unspecified (principal); S06.5X9A Traumatic subdural hemorrhage with loss of consciousness of unspecified duration, initial encounter; X58.XXXA Exposure to other specified factors, initial encounter; Y92.89 Other specified places as the place of occurrence of the external cause

== ENCOUNTER → 2018-10-16 | Outpatient (REF) | payer MEDICARE ==
[~2018-10-16] MED LIST changes: +CALCTAB7 PO; +HYDR-3715 PO; -NORCOTAB PO; +VITA100018 PO; -VITA100072 PO
== END ==
LOC: M SFHCPLAZ 19:37
PROVIDERS: ATTEND Dermatology
DX: C44.529 Squamous cell carcinoma of skin of other part of trunk (principal); D04.72 Carcinoma in situ of skin of left lower limb, including hip

== ENCOUNTER → 2018-11-03 | Outpatient (CLI) | payer MEDICARE ==
[~2018-11-03] MED LIST changes: +ISOVUE-370 76% 100ML VIAL (Q9967) As Ordered ONE
--- NOTE | 2018-11-03 13:50 | REP ---
CT CHEST WITH IV CONTRAST: HISTORY: Adrenal mass. Question metastasis. Comparison CT is from August 31, 2017. There is a comparison CT study from December 24, 2015 as well. 75 mL of intravenous Isovue [address] FINDINGS: The previously noted left adrenal mass lesion has enlarged considerably since the most recent prior CT study of August 31, 2017. It measures 5.9 x 5.4 cm. It extends beyond the bottom edge of the scanning field of view. Previously, it measured 2.7 cm in greatest diameter. There is a peripheral pattern of enhancement with one wall calcification again seen. The remainder the adrenal glands appear hypertrophied unchanged. No focal liver mass lesion is appreciated. No hilar or mediastinal mass or adenopathy is observed. No new pulmonary nodule is seen. There is a small stable spiculated lesion in the right upper lobe of the lung on page 29 of 120 in series 201 of today's study. This measures 6 mm in diameter unchanged from the December 07, 2015 prior study. Emphysematous changes are noted in the upper lobes. There is calcific pleural thickening at the right base. A stable 4 mm subpleural nodule is seen in the right upper lobe unchanged from the December 07, 2015 study as well. Bone window settings show no bony destructive lesion. There is an anastomotic suture line in the right colon and there are cysts in the left kidney as before. 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 Stable pulmonary parenchymal findings. No evidence to suggest metastatic disease. Electronically Signed by Lucian Randolph MD 11/03/2018 02:36 P
== END ==
LOC: M RAD 10:34
PROVIDERS: ATTEND Urology
DX: E27.9 Disorder of adrenal gland, unspecified (principal); R91.8 Other nonspecific abnormal finding of lung field
CPT/HCPCS: 71260; Q9967

== ENCOUNTER → 2018-11-28 | Outpatient (REF) | payer MEDICARE ==
[~2018-11-28] MED LIST changes: -ISOVUE-370 76% 100ML VIAL (Q9967) As Ordered ONE
== END ==
LOC: M SFHCPLAZ 17:30
PROVIDERS: ATTEND Dermatology
DX: L90.5 Scar conditions and fibrosis of skin (principal)

== ENCOUNTER → 2019-01-30 | Outpatient (REF) | payer MEDICARE ==
[~2019-01-30] MED LIST changes: +CYAN100049 PO; -VITA10002 PO
[2019-01-31 12:42] LABS: PHOSPHORUS LEVEL 3.6 MG/DL (2.5-4.9)
[2019-01-31 12:53] LABS: PTH INTACT 16.4 PG/ML (18.5-88.0)
== END ==
LOC: M LAB REF 11:29
PROVIDERS: ATTEND Nurse Practitioner Adult Health
DX: E83.52 Hypercalcemia (principal)

== ENCOUNTER → 2019-02-20 | Outpatient (REF) | payer MEDICARE | LOC: M SFHCPLAZ 10:39 | PROVIDERS: ATTEND Dermatology | DX: L57.0 Actinic keratosis (principal); L57.8 Other skin changes due to chronic exposure to nonionizing radiation ==

== ENCOUNTER → 2019-06-07 | Outpatient (REF) | payer MEDICARE ==
[2019-06-07 15:28] LABS: APPEARANCE, URINE HAZY (CLEAR); BACTERIA, URINE AUTO 1+ (NEGATIVE); BILIRUBIN, URINE AUTO NEGATIVE (NEGATIVE); BLOOD, URINE BLOOD 3+ (NEGATIVE); COLOR, URINE AMBER (YELLOW); GLUCOSE, URINE (UA) AUTO NEGATIVE (NEGATIVE); KETONE, URINE AUTO NEGATIVE (NEGATIVE); LEUKOCYTE ESTERASE, URINE AUTO 2+ (NEGATIVE); MUCUS, URINE SMALL (NEGATIVE); NITRITE, URINE AUTO NEGATIVE (NEGATIVE); PROTEIN, URINE AUTO 1+ mg/dL (NEGATIVE); RBC, URINE AUTO 137 /HPF (0-3); SPECIFIC GRAVITY URINE AUTO 1.008 (1.002-1.035); SQUAMOUS EPITHELIAL CELL UR AU 0 /HPF (0-6); UROBILINOGEN, URINE AUTO 0.2 mg/dL (0.0-2.0); WBC, URINE AUTO 60 /HPF (0-3)
== END ==
LOC: M LAB REF 15:05
PROVIDERS: ATTEND Nurse Practitioner Adult Health
DX: R31.0 Gross hematuria (principal)

== ENCOUNTER → 2019-06-14 | Outpatient (REF) | payer MEDICARE ==
[~2019-06-14] MED LIST changes: +LEVO250T12 PO
== END ==
LOC: M LAB REF 12:41
PROVIDERS: ATTEND Nurse Practitioner Adult Health
DX: R31.0 Gross hematuria (principal)